=== PATIENT | female | born 1990 | race Caucasian/White ===

== ENCOUNTER 2024-03-12 10:19 | Emergency (ER) | payer OTHER, SELFPAY ==
[2024-03-12 10:22] VITALS: BP 141/93; PULSE 83; TEMP 36.9; O2SAT 99; BMI 29.4
--- NOTE | 2024-03-12 10:44 | XR_ITS ---
The [address] [address] Patient Name: ZENA STORM MRN: [id number] date: 1990 Sex: F Assigned Patient Location: ER Current Patient Location: Accession/Order Number: [id number] Exam Date: 03/12/2024 10:53 Report Date: 03/12/2024 11:41 At the request of: POOL HOSKINS Procedure: XR hip LT 2V w/ pelvis HISTORY: Left hip pain after feeling a pop in the hip getting out of bed today. XR hip LT 2V w/ pelvis: 03/12/2024 10:53 AM EST COMPARISON: None. FINDINGS: There is a radiopaque intrauterine device projecting over the central pelvis. There are mild degenerative changes of the pubic symphysis. No fracture or dislocation is seen. Incidental note is made of a bone island in the intertrochanteric region of the right femur. No significant joint space narrowing of the left hip is seen. XR/XR hip LT 2V w/ pelvis IMPRESSION: 1. No fracture, dislocation or significant degenerative change of the left hip is seen. 2. 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 Electronically authenticated by: SANDRA DOAN Date: 03/12/2024 11:41
--- NOTE | 2024-03-12 10:49 | ED_ITS ---
HPI HPI - Extremity Injury (Lower) General Chief Complaint: Extremity Injury, Lower Stated Complaint: HIP/GROIN PAIN Time Seen by Provider: 03/12/24 10:44 Source: patient Mode of arrival: Wheelchair History of Present Illness HPI Narrative: Here complaining of pain in her left hip. She states that she has never had problems with her hip previously. She states the other day she just routinely getting out of bed and felt a popping sensation. She has been able to walk on it but it has been progressively getting more and more painful. The pain is in her left groin area. She does not have any radiculopathy type symptoms and does not have any pain in the low back area. She has no history of kidney stones. She has no problems voiding. She has not seen any blood in her urine. She has no loss of sensation in her lower leg. The pain is made worse when she flexes and extends the hip. She has no symptoms on the right side. She has not taken any anti-inflammatories or uimd-gso-vlcerxp medication because her neurologist told her that she would have a rebound migraine if she took any medicines of that nature. Related Data Home Medications ?Medication ?Instructions ?Recorded ?Confirmed aripiprazole 5 mg tablet 5 mg PO DAILY 03/12/24 03/12/24 colestipol 1 gram tablet 1 g PO DAILY 03/12/24 03/12/24 dicyclomine 10 mg capsule 10 mg PO DAILY 03/12/24 03/12/24 hydroxyzine pamoate 50 mg capsule 50 mg PO DAILY 03/12/24 03/12/24 lamotrigine 25 mg tablet 25 mg PO DAILY 03/12/24 03/12/24 sertraline 50 mg tablet 50 mg PO DAILY 03/12/24 03/12/24 trazodone 50 mg tablet 50 mg PO DAILY 03/12/24 03/12/24 triamcinolone acetonide 0.1 % 1 applic topical DAILY 03/12/24 03/12/24 topical cream valacyclovir 500 mg tablet 500 mg PO DAILY 03/12/24 03/12/24 Allergies Allergy/AdvReac Type Severity Reaction Status Date / Time amoxicillin (From Augmentin) Allergy Severe Nausea Verified 03/12/24 10:27 clavulanic acid (From Allergy Severe Nausea Verified 03/12/24 10:27 Augmentin) sumatriptan (From Imitrex) Allergy Severe Nausea Verified 03/12/24 10:27 Opioid HPI Opioid Management Most Recent Pain and Opioid Data: No Data to Display PFSH PFSH Social History Little interest or pleasure in doing things: not at all Feeling down, depressed, or hopeless: not at all Exam Narrative Exam Narrative: Awake alert [place] x 3. She is sitting with her left hip in a moderately flexed position. Her pulses to the distal extremity are normal and there is no evidence of edema cellulitis or ropiness in the leg. She has no pain in the ankle or the knee joint. She does have some discomfort when flexing the left groin. She does not have any pain in the back area. There is no skin lesions noted in the affected area. Peripheral perfusion is fine to that leg. Constitutional Vital Signs, click to edit/add: Last Vital Signs Temp 98.5 F 03/12/24 10:22 Pulse 83 03/12/24 10:22 Resp 18 03/12/24 10:22 BP 141/93 H 03/12/24 10:22 Pulse Ox 99 03/12/24 10:22 O2 Del Method Room Air 03/12/24 10:22 Course Vital Signs Vital signs: Vital Signs Temperature 98.5 F 03/12/24 10:22 Pulse Rate 83 03/12/24 10:22 Respiratory Rate 18 03/12/24 10:22 Blood Pressure 141/93 H 03/12/24 10:22 Pulse Oximetry 99 03/12/24 10:22 Oxygen Delivery Method Room Air 03/12/24 10:22 Temperature 98.5 F 03/12/24 10:22 Pulse Rate 83 03/12/24 10:22 Respiratory Rate 18 03/12/24 10:22 Blood Pressure 141/93 H 03/12/24 10:22 Pulse Oximetry 99 03/12/24 10:22 Oxygen Delivery Method Room Air 03/12/24 10:22 MDM - Extremity Injury (Lower) MDM Narrative Medical decision making narrative: Patient here with a popping sensation several days ago with increasing pain in her left groin and hip area. X-rays do not show any severe degenerative changes or abnormalities. They will be reviewed by the radiologist. She is afebrile I see no indication of a septic joint. I see no indication of neurovascular compromise. She says that she cannot take shao-[id number]-[id number] NSAIDs because of worsening of her migraine situation. We discussed the pros and cons of a steroid pack and cnku-lat-bjfdzsz Tylenol for pain management. She will be referred to orthopedics for further evaluation Discharge Plan Discharge Chief Complaint: Extremity Injury, Lower Clinical Impression: Acute pain of left hip Patient Disposition: Home, Self-Care Time of Disposition Decision: 11:17 Prescriptions / Home Meds: No Action aripiprazole 5 mg tablet 5 mg PO DAILY colestipol 1 gram tablet 1 g PO DAILY dicyclomine 10 mg capsule 10 mg PO DAILY hydroxyzine pamoate 50 mg capsule 50 mg PO DAILY lamotrigine 25 mg tablet 25 mg PO DAILY sertraline 50 mg tablet 50 mg PO DAILY trazodone 50 mg tablet 50 mg PO DAILY triamcinolone acetonide 0.1 % cream 1 applic TOPICAL DAILY valacyclovir 500 mg tablet 500 mg PO DAILY Print Language: Spanish Additional Instructions: Start Medrol pack. Restrict movement for 48 hours/follow-up with orthopedics Referrals: HORACIO PETERSON [Primary Care Provider] - 1 week
== END 2024-03-12 11:42 | disposition home or self-care (01) ==
PROVIDERS: Emergency Provider Emergency Medicine Emergency Medical Services; PCP Family Medicine
DX: M25.552 Pain in left hip (principal)
CPT/HCPCS: 73502; 99283